=== PATIENT | female | born 1980 | race Caucasian/White ===

== ENCOUNTER 2025-04-06 18:05 | Emergency (ER) | payer BC, SELFPAY ==
[2025-04-06 18:14] VITALS: BP 107/73
[2025-04-06 18:33] LABS: % Basophils 0.4 % (0-2); % Eosinophils 3.5 % (0-6); % Lymphocytes 29.5 % (20.5-51.1); % Monocytes 13.2 % (1.7-9.3); % Neutrophils 53.4 % (42.2-75.2); Absolute Eosinophils 0.1 10^3/uL (0-0.7); Absolute Lymphocytes 0.8 10^3/uL (1.2-3.4); Absolute Monocytes 0.3 10^3/uL (0.1-0.6); Absolute Neutrophils 1.4 10^3/uL (1.4-6.5); Hemoglobin 12.6 g/dL (12.0-16.0); Mean Corp Hgb Conc. 34.1 g/dL (33.0-37.0); Mean Corpuscular Volume 88.1 fL (81.0-99.0); Mean Platelet Volume 10.2 fL (7.4-10.4); Nucleated Red Blood Cells % 0 %; Platelet Count 156 10^3/uL (130-400); Red Cell Dist. Width 12.1 % (11.5-14.5); White Blood Cell Count 2.6 10^3/uL (4.8-10.8)
[2025-04-06 18:44] LABS: HCG, Serum Qualitative Screen Negative; Lactic Acid 0.7 mmol/L (0.7-2.0)
[2025-04-06 18:50] LABS: ALT (SGPT) 14 U/L (0-35); AST (SGOT) 16 U/L (14-36); Alkaline Phosphatase 45 U/L (38-126); Blood Urea Nitrogen 10 mg/dl (7-17); Calcium 8.7 mg/dl (8.4-10.2); Carbon Dioxide 28 mmol/L (22-30); Chloride 107 mmol/L (98-107); Glucose 94 mg/dl (70-99); Potassium 3.9 mmol/L (3.5-5.1); Sodium 139 mmol/L (135-145); Total Bilirubin 0.5 mg/dl (0.2-1.3); Total Protein 6.9 g/dl (6.3-8.2); eGFR 56.54
--- NOTE | 2025-04-06 23:00 | ED.GENMED ---
History of Present Illness
General
Chief Complaint: Abnormal Lab Value
Source: patient
Exam Limitations: none
Time Seen by Provider: 04/06/25 22:17
Nursing documentation reviewed up to this point in time: agreed with
History of Present Illness
History of Present Illness:
This is a 45-year-old woman who has history of hypothyroidism, maintained on Synthroid. She presents with 2-day history of fever, chills, aches accompanied with hoarse voice and scratchy throat. She admits that hoarse voice has mildly improved,
continues with mildly scratchy throat but denies difficulty swallowing. No cough, no shortness of breath, no chest nor abdominal pain. No nausea or vomiting, no diarrhea or constipation. She denies dysuria and urgency and or hematuria. She has
been taking Tylenol intermittently with last dose at 2 PM.
She was evaluated at urgent care today and noted to have low white blood cell count, sent to the ED for further evaluation.
Home COVID testing has been negative.
COVID/flu/rapid strep negative at urgent care.
Past History
Past History
ED Past Medical History: Hypothyroidism
ED Past Surgical History: and Orthopedic (Right knee)
Social History
Tobacco: Non-smoker
Living: with family
Employment: Employed
Family History
Family History: Other (Noncontributory)
Phy Exam
Physical Exam
Physical Exam:
GENERAL: 45-year-old woman appears her stated age, awake and alert, pleasant, appears in no acute distress. Very minimally hoarse voice is noted. No cough, no stridor, no respiratory distress. Oral temperature 101.3 �F.
EYE: pupils equal and reactive. anicteric
NECK: Supple, nontender, no meningismus, no significant adenopathy.
ENT: posterior pharynx is clear, oral mucosa is moist. TM clear b/l, nares patent.
CARDIAC: Regular rate and rhythm. no murmur. No rub.
LUNGS: Clear breath sounds bilaterally, no acute respiratory distress, no wheezes/rales/rhonchi
ABDOMEN: Soft, nondistended, without focal tenderness, no r/g, no cvat. normoactive BS.
NEUROLOGICAL: Alert and oriented x3, no focal neuro deficits. Gait is thomas and steady.
SKIN: Mildly hot to touch and dry, normal color, skin intact. No rash.
MUSCULOSKELETAL: No C/C/E. peripheral pulses are full and equal b/l. No palpable tenderness.
PSYCH: Normal and appropriate interaction.
Course
Orders/Labs/Results
Orders:
Orders
04/06/25 18:19
Test Result ONCE
04/06/25 18:25
Complete Blood Count/With Diff Urgent
Comprehensive Metabolic Panel Urgent
HCG, Serum Qualitative Screen Urgent
Lactic Acid Urgent
04/06/25 22:59
Encourage PO Hydration-Treatme ONCE
Acetaminophen [Tylenol] 1,000 mg PO NOW STA
Prednisone [Deltasone] 40 mg PO NOW STA
Abnormal Lab Results
04/06/25
18:25
WBC 2.6 L 10^3/uL
(4.8-10.8)
Absolute Lymphs (auto) 0.8 L 10^3/uL
(1.2-3.4)
Monocytes % 13.2 H %
(1.7-9.3)
Creatinine 1.2 H mg/dL
(0.6-1.0)
04/06/25 18:25
04/06/25 18:25
Vital Signs
Temp: 101.3 F
Initial and Last Documented VS:
Initial Vital Signs
Temp Pulse Resp BP Pulse Ox
100.2 F 108 16 107/73 98
04/06/25 18:14 04/06/25 18:14 04/06/25 18:14 04/06/25 18:14 04/06/25 18:14
Last Documented Vital Signs
Temp Pulse Resp BP Pulse Ox
100.2 F 108 16 107/73 98
04/06/25 18:14 04/06/25 18:14 04/06/25 18:14 04/06/25 18:14 04/06/25 18:14
MDM/Problems Addressed
Differential Diagnosis Includes:
Acute febrile illness, laryngitis.
Highly suspect laryngitis/fever is viral in nature.
COVID/flu/rapid strep reportedly negative at urgent care.
Leukopenia with white blood cell count of 2.6 noted consistent with viral illness.
Patient has no history of immunocompromise nor family history of such.
Overall well in appearance.
Creatinine minimally elevated at 1.2. Patient unsure as to her baseline creatinine but reports no history of renal disease. With febrile illness over the past 2.5 days this may be an element of mild dehydration. She avoids NSAIDs due to GI upset.
Patient states she can tolerate oral steroids without GI issues.
Will give a dose of Tylenol now for fever. Will initiate a short course of prednisone for mild laryngitis. Nothing in history nor exam to suggest airway compromise and patient admits that symptoms are slightly improved today.
Discussed importance of staying well-hydrated on a daily basis.
Prompt follow-up with PCP for recheck.
*Pulse Oximetry
SaO2: 98
Oxygen Mode of Delivery: Room air
Patient hypoxic: no
*Critical Care Note
Total Time (30-74mins, 75-104mins- exclusive of procedures): Not Applicable
ED Attending Note
-
Portions of this chart may have been created with voice recognition software.� Occasional wrong word or��sound alike� substitutions may have occurred due to the inherent limitations of voice recognition software.
Discharge Plan
Departure
Patient Disposition: Home (Routine Discharge)
Date of Disposition: 04/06/25
Time of Disposition: 23:00
Patient with high blood pressure during this ER visit?: No
Condition: Good
Discharge Problem:
Acute laryngitis without obstruction, Acute viral syndrome
Instructions: Fever, Adult (DC), Laryngitis ED
Prescriptions:
New
prednisone 20 mg tablet
40 mg PO DAILY Qty: 4 0RF
Referrals:
Rivas Sheth MD [Family Provider, Internal Medicine] - Call in 1-3 days for appt
Stand Alone Forms: Return to Work
Interventions
Interventions:
*Risk Screen - Suicide Last Done: 04/06/25 18:20
*Neglect/Abuse Screening Last Done: 04/06/25 18:20
Discharge Date and Time
Print Language: MAORI
[2025-04-06] MEDS: TYLENOL 1000 MG PO (23:13)
[2025-04-06] MEDS: DELTASONE 40 MG PO (23:13)
[2025-04-06 23:14] VITALS: BP 107/59
== END 2025-04-06 23:20 | disposition home or self-care (01) ==
LOC: EMR 18:05
PROVIDERS: Student in an Organized Health Care Education/Training Program; EMERGENCY PHYSICIAN Emergency Medicine; FAMILY PHYSICIAN Internal Medicine
DX: J04.0 Acute laryngitis (principal); B34.9 Viral infection, unspecified; E03.9 Hypothyroidism, unspecified; Z79.899 Other long term (current) drug therapy
CPT/HCPCS: 99283; 80053; 83605; 84703; 85025